=== PATIENT | male | born 1940 | race Caucasian/White ===

== ENCOUNTER 2019-08-26 18:58 | Outpatient (CLI) | payer OTHER | END 2019-08-26 18:59 | disposition home or self-care (01) | LOC: COV 18:58 | PROVIDERS: ATTEND Family Medicine | DX: R50.9 Fever, unspecified (principal); M79.10 Myalgia, unspecified site | CPT/HCPCS: 81599 ==

== ENCOUNTER 2020-01-03 14:04 | Outpatient (CLI) | payer OTHER | END 2020-01-03 14:05 | disposition home or self-care (01) | LOC: COV 14:04 | PROVIDERS: ATTEND Family Medicine | DX: R05 Cough (principal); R53.83 Other fatigue; Z20.828 Contact with and (suspected) exposure to other viral communicable diseases ==

== ENCOUNTER 2020-07-18 09:26 | Outpatient (CLI) | payer OTHER | END 2020-07-18 09:27 | disposition home or self-care (01) | LOC: RT 09:26 | PROVIDERS: ATTEND Family Medicine | DX: R06.09 Other forms of dyspnea (principal) | CPT/HCPCS: 94010 ==

== ENCOUNTER 2022-05-12 11:50 | Outpatient (CLI) | payer OTHER ==
[2022-05-12 12:23] LABS: CREATININE 1.4 mg/dL (0.6-1.2)
== END 2022-05-12 11:51 | disposition home or self-care (01) ==
LOC: LAB 11:50
PROVIDERS: ATTEND Nurse Practitioner Family
DX: R10.12 Left upper quadrant pain (principal)
CPT/HCPCS: 36415; 82565

== ENCOUNTER 2022-10-22 16:45 | Emergency (ER) | payer OTHER ==
[2022-10-22 17:07] LABS: BASOPHILS # (AUTO) 0.1 10^3/uL (0.0-0.1); BASOPHILS % (AUTO) 0.4 %; EOSINOPHILS % (AUTO) 0.1 %; HCT - HEMATOCRIT 40.2 % (42.0-52.0); HGB - HEMOGLOBIN 13.2 g/dL (14.0-18.0); LYMPHOCYTES # (AUTO) 1.4 10^3/uL (1.5-3.5); LYMPHOCYTES % (AUTO) 8.1 %; MEAN CORPUSCULAR HEMOGLOBIN 29.7 pg (27.0-31.0); MEAN CORPUSCULAR HGB CONC 32.8 g/dL (32.0-36.0); MEAN CORPUSCULAR VOLUME 90.3 fL (80.0-94.0); MEAN PLATELET VOLUME 9.3 fL (7.4-11.4); MONOCYTES # (AUTO) 1.4 10^3/uL (0.0-1.0); MONOCYTES % (AUTO) 8.3 %; NEUTROPHILS # (AUTO) 13.6 10^3/uL (1.5-6.6); NEUTROPHILS % (AUTO) 82.3 %; PLT - PLATELET COUNT 239 10^3/uL (130-450); RED BLOOD COUNT 4.45 10^6/uL (4.70-6.10); RED CELL DISTRIBUTION WIDTH 15.1 % (12.0-15.0); WHITE BLOOD COUNT 16.6 x10^3/uL (4.8-10.8)
[2022-10-22] MEDS ORDERED: METOCLOPRAMIDE 10 MG/2 ML VIAL IVP STA ×2 (17:08→22:14)
[2022-10-22 17:20] LABS: ALBUMIN 3.7 g/dL (3.2-5.5); BILIRUBIN,TOTAL 0.7 mg/dL (0.2-1.0); CALCIUM 10.7 mg/dL (8.5-10.3); CREATININE 1.4 mg/dL (0.6-1.2); POTASSIUM 3.2 mmol/L (3.5-5.0); TOTAL PROTEIN 7.3 g/dL (6.7-8.2)
--- NOTE | 2022-10-22 17:32 | ED Physician Documentation ---
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 He states that over the past few days he has had increasing nausea and feels like there is "acid buildup" in his stomach. He has Compazine and Zofran at home but does not feel like that is helping. Has had some constipation as well. He states he feels better if he makes himself vomit. He states his recent CT scan showed very little tumor burden left in the stomach. [facility] at the [facility] in [place]. Review of Systems Constitutional: denies: Fever, Chills Nose: denies: Rhinorrhea / runny nose, Congestion Cardiac: denies: Chest pain / pressure, Palpitations Respiratory: denies: Dyspnea, Cough GI: reports: Nausea. denies: Vomiting, Diarrhea : denies: Dysuria Skin: denies: Rash Musculoskeletal: denies: Neck pain, Back pain Neurologic: denies: Focal weakness, Numbness, Headache PD PAST MEDICAL HISTORY - Past Medical History Past Medical History: Yes GI: GERD Other Past Medical History: Gastric lymphoma - Present Medications Home Medications: Ambulatory Orders Medication Instructions Recorded Confirmed Metoclopramide [Reglan] 10 mg PO Q6H PRN #20 tablet 10/22/22 Omeprazole Magnesium 20 mg PO BID 10/22/22 10/22/22 Prochlorperazine Maleate 10 mg ORAL Q6HR PRN 10/22/22 10/22/22 ondansetron HCL [Ondansetron HCl] 8 mg ORAL Q8HR PRN 10/22/22 10/22/22 - Allergies Allergies/Adverse Reactions: Allergies Allergy/AdvReac Type Severity Reaction Status Date / Time No Known Drug Allergies Allergy Verified 10/22/22 16:50 - Living Situation Living Situation: reports: With family Living Arrangement: reports: At home - Social History Does the pt have substance abuse?: No - Family History Family history: reports: Non contributory PD ED PE NORMAL - Vitals Vital signs reviewed: Yes - General General: Alert and oriented X 3, No acute distress - HEENT HEENT: PERRL, Moist mucous membranes - Neck Neck: Supple, no meningeal sign - Cardiac Cardiac: RRR, Strong equal pulses - Respiratory Respiratory: No respiratory distress, Clear bilaterally - Abdomen Abdomen: Soft, Non distended, Other (Mild tender to palpation epigastric and left upper quadrant. No peritoneal signs) - Back Back: No CVA TTP, No spinal TTP - Derm Derm: Warm and dry - Extremities Extremities: No edema, No calf tenderness / cord - Neuro Neuro: Alert and oriented X 3 - Psych Psych: Normal mood, Normal affect Results - Vitals Vitals: Vital Signs - 24 hr 10/22/22 10/22/22 10/22/22 16:51 19:18 21:00 Temperature 36.5 C Heart Rate 112 H 75 74 Respiratory 18 18 16 Rate Blood Pressure 147/90 H 121/73 120/72 O2 Saturation 91 L 98 98 10/22/22 22:51 Temperature 36.5 C Heart Rate 72 Respiratory 16 Rate Blood Pressure 122/76 O2 Saturation 100 Oxygen O2 Source Room air - Labs Labs: Laboratory Tests 10/22/22 10/22/22 10/22/22 17:03 17:03 17:10 WBC 16.6 H RBC 4.45 L Hgb 13.2 L Hct 40.2 L MCV 90.3 MCH 29.7 MCHC 32.8 RDW 15.1 H Plt Count 239 MPV 9.3 Neut # (Auto) 13.6 H Lymph # (Auto) 1.4 L [place] # (Auto) 1.4 H Eos # (Auto) 0.0 Baso # (Auto) 0.1 Absolute Nucleated RBC 0.00 Nucleated RBC % 0.0 Sodium 132 L Potassium 3.2 L Chloride 90 L Carbon Dioxide 32 Anion Gap 10.0 BUN 15 Creatinine 1.4 H Estimated GFR (MDRD) 49 L Glucose 144 H Calcium 10.7 H Total Bilirubin 0.7 AST 18 ALT 15 Alkaline Phosphatase 70 Total Protein 7.3 Albumin 3.7 Globulin 3.6 Albumin/Globulin Ratio 1.0 Lipase 33 Urine Color YELLOW Urine Clarity CLEAR Urine pH 7.5 Ur Specific [place] 1.010 Urine Protein NEGATIVE Urine Glucose (UA) NEGATIVE Urine Ketones NEGATIVE Urine Occult Blood NEGATIVE Urine Nitrite NEGATIVE Urine Bilirubin NEGATIVE Urine Urobilinogen 0.2 (NORMAL) Ur Leukocyte Esterase NEGATIVE Ur Microscopic Review NOT INDICATED Urine Culture Comments NOT INDICATED PD Medical Decision Making - ED course Complexity details: reviewed results, re-evaluated patient, considered differential, d/w patient ED course: 82-year-old male with a history of gastric lymphoma presents with nausea and vomiting. He had quite a bit of relief with Reglan. However when he did try to drink again, he had a large amount of emesis. A CT scan was then performed. This does not show any evidence of obstruction. He was given IV fluids. He was given a second dose of IV Reglan several hours later and feels much better. He does not want to stay in the hospital. He will try being on a liquid diet for the next 24 hours and see how he progresses. If he fails to improve as expected, he will return for likely admission at that point. He is followed at the [facility]. Abdomen is soft, nontender nondistended. No significant lab abnormalities. Patient and family counseled regarding signs and symptoms for which I believe and urgent re-evaluation would be necessary. Patient with good understanding of and agreement to plan and is comfortable going home at this time This document was made in part using voice recognition software. While efforts are made to proofread this document, sound alike and grammatical errors may occur. Departure - Departure Disposition: 01 Home, Self Care Clinical Impression: Vomiting Qualifiers: Vomiting type: unspecified Nausea presence: with nausea Qualified Code(s): R11.2 - Nausea with vomiting, unspecified Condition: Good Instructions: ED Nausea Vomiting Follow-Up: KERRIE KICNAID ARNP [Primary Care Provider] - Within 3 Days Prescriptions: Metoclopramide [Reglan] 10 mg PO Q6H PRN #20 tablet PRN Reason: Nausea / Vomiting Comments: We will trial you on Reglan at home for your nausea and vomiting. Do not take this with your Compazine/prochlorperazine. Make sure to eat small frequent meals, I would stick to a liquid diet for the next 24 hours at least. Please return if you are continuing to have vomiting, cannot keep liquids down or have any new or worrisome symptoms. Your prescriptions were sent to [facility] in [place]. PROCEDURE: ABDOMEN/PELVIS W INDICATIONS: gastric lymphoma, vomiting CONTRAST: Nonionic contrast, no oral contrast, 100 ML OMNI 300 TECHNIQUE: After the administration of intravenous but without oral contrast, 5 mm thick sections acquired from the diaphragms to the symphysis. 5 mm thick coronal and sagittal reformats were acquired. For radiation dose reduction, the following was used: automated exposure control, adjustment of mA and/or kV according to patient size. COMPARISON: Similar study 05/12/2022 FINDINGS: Image quality: Excellent. Lung bases and heart: Mild chronic appearing lung scarring, suspect COPD. Liver: No solid mass. Gallbladder and biliary tree: The gallbladder appears moderately contracted Spleen: No splenomegaly. Pancreas: No pancreatic ductal dilation. Adrenals: No adrenal nodule. Kidneys and ureters: No hydronephrosis. No renal cystic lesion which requires follow up. No solid mass. Bowel and peritoneum: No bowel distension. No pathologic free fluid. Abnormal mural thickening of the gastric wall through the distal body and gastric antrum is no longer seen. The antrum appears contracted. Lymph nodes: No central or retroperitoneal adenopathy. Vessels: No infrarenal aortic aneurysm. PELVIS Reproductive organs: Unremarkable. Bladder: No abnormal wall thickening, accounting for underdistension. Pelvic lymph nodes: No pelvic adenopathy by size criteria. Bones: No aggressive osseous abnormality. Other: No significant ventral or inguinal hernia. IMPRESSION: Resolution of prior abnormal mural thickening at the distal gastric body and the antrum seen 05/12/2022. This has resolved. Currently while there is fluid filling the gastric lumen the gastric antrum appears relatively contracted but identifiable mural thickening is not present. Lung bases emphysematous change appears present, probable COPD. Throughout the visualized lower chest, abdomen and pelvis no adenopathy is found. Discharge Date/Time: 10/22/22 22:51
[2022-10-22 18:11] LABS: BILIRUBIN,URINE NEGATIVE (NEGATIVE); GLUCOSE, URINE (UA) NEGATIVE (NEGATIVE); KETONES,URINE (UA) NEGATIVE (NEGATIVE); LEUKOCYTE ESTERASE, URINE NEGATIVE (NEGATIVE); NITRITE,URINE NEGATIVE (NEGATIVE); OCCULT BLOOD,URINE NEGATIVE (NEGATIVE); PH,URINE 7.5 PH (5.0-7.5); PROTEIN,URINE NEGATIVE (NEGATIVE); UROBILINOGEN,URINE 0.2 (NORMAL) E.U./dL (NORMAL)
[2022-10-22 18:12] LABS: CLARITY,URINE CLEAR (CLEAR)
[2022-10-22] MEDS ORDERED: PROMETHAZINE INJ 25 MG in SODIUM CHLORIDE 0.9% 50 ML IV STA (18:48)
[2022-10-22] MEDS ORDERED: PROMETHAZINE 25 MG/1 ML VIAL ONE (19:11)
[2022-10-22] MEDS ORDERED: iohexoL-300 100 ML VIAL ONE (20:05)
[2022-10-22] MEDS ORDERED: iohexoL-300 100 ML VIAL IVP ONE (20:40)
--- NOTE | 2022-10-22 21:51 | CT Report ---
PROCEDURE: ABDOMEN/PELVIS W INDICATIONS: gastric lymphoma, vomiting CONTRAST: Nonionic contrast, no oral contrast, 100 ML OMNI 300 TECHNIQUE: After the administration of intravenous but without oral contrast, 5 mm thick sections acquired from the diaphragms to the symphysis. 5 mm thick coronal and sagittal reformats were acquired. For radia tion dose reduction, the following was used: automated exposure control, adjustment of mA and/or kV according to patient size. COMPARISON: Similar study 05/12/2022 FINDINGS: Image quality: Excellent. Lung bases and heart: Mild chronic appearing lung scarring, suspect COPD. Liver: No solid mass. Gallbladder and biliary tree: The gallbladder appears moderately contracted Spleen: No splenomegaly. Pancreas: No pancreatic ductal dilation. Adrenals: No adrenal nodule. Kidneys and ureters: No hydronephrosis. No renal cystic lesion which requires follow up. No solid mas s. Bowel and peritoneum: No bowel distension. No pathologic free fluid. Abnormal mural thickening of the gastric wall through the distal body and gastric antrum is no longer seen. The antrum appears contra cted. Lymph nodes: No central or retroperitoneal adenopathy. Vessels: No infrarenal aortic aneurysm. PELVIS Reproductive organs: Unremarkable. Bladder: No abnormal wall thickening, accounting for underdistension. Pelvic lymph nodes: No pelvic adenopathy by size criteria. Bones: No aggressive osseous abnormality. Other: No significant ventral or inguinal hernia. IMPRESSION: Resolution of prior abnormal mural thickening at the distal gastric body and the antrum seen 3. This has resolved. Currently while there is fluid filling the gastric lumen the gastric antrum murphy ears relatively contracted but identifiable mural thickening is not present. Lung bases emphysematous change appears present, probable COPD. Throughout the visualized lower chest , abdomen and pelvis no adenopathy is found. Reviewed by: Yonis Aguilar MD on 10/22/2022 9:49 PM PDT Approved by: Yonis Aguilar MD on 10/22/2022 9:49 PM PDT Station ID: [id number]
[2022-10-22 22:58] VITALS: BP 122/76
== END 2022-10-22 22:51 | disposition home or self-care (01) ==
LOC: ED 16:45
DX: R11.2 Nausea with vomiting, unspecified (principal)
CPT/HCPCS: 36415; 74177; 80053; 81003; 83690; 85025; 96365; 96375; 96376; 99284; J2765; J7040; Q9967; 81001; 87086

== ENCOUNTER 2022-10-23 08:56 | Emergency (ER) | payer OTHER ==
[2022-10-23 10:03] LABS: BASOPHILS # (AUTO) 0.1 10^3/uL (0.0-0.1); BASOPHILS % (AUTO) 0.3 %; EOSINOPHILS % (AUTO) 0.1 %; HCT - HEMATOCRIT 37.1 % (42.0-52.0); HGB - HEMOGLOBIN 12.1 g/dL (14.0-18.0); LYMPHOCYTES # (AUTO) 1.2 10^3/uL (1.5-3.5); MEAN CORPUSCULAR HEMOGLOBIN 29.7 pg (27.0-31.0); MEAN CORPUSCULAR HGB CONC 32.6 g/dL (32.0-36.0); MEAN CORPUSCULAR VOLUME 90.9 fL (80.0-94.0); MEAN PLATELET VOLUME 9.6 fL (7.4-11.4); MONOCYTES # (AUTO) 1.6 10^3/uL (0.0-1.0); MONOCYTES % (AUTO) 10.7 %; NEUTROPHILS # (AUTO) 12.1 10^3/uL (1.5-6.6); NEUTROPHILS % (AUTO) 80.2 %; PLT - PLATELET COUNT 216 10^3/uL (130-450); RED BLOOD COUNT 4.08 10^6/uL (4.70-6.10); RED CELL DISTRIBUTION WIDTH 15.3 % (12.0-15.0); WHITE BLOOD COUNT 15.1 x10^3/uL (4.8-10.8)
[2022-10-23] MEDS ORDERED: SODIUM CHLORIDE 0.9% 1,000 ML IV STA (10:07)
[2022-10-23 10:11] LABS: RBC MORPHOLOGY (MULTIPLE) 3+ ANISOCYTOSIS (NORMAL); SLIDE REVIEW? Indicated
[2022-10-23 10:17] LABS: ALBUMIN 3.1 g/dL (3.2-5.5); BILIRUBIN,TOTAL 0.8 mg/dL (0.2-1.0); CALCIUM 10.4 mg/dL (8.5-10.3); CREATININE 1.4 mg/dL (0.6-1.2); TOTAL PROTEIN 6.2 g/dL (6.7-8.2)
[2022-10-23] MEDS: diltiaZEM CD 120 MG CAPSULE PO STA ×2 (10:27→11:02)
[2022-10-23 11:11] LABS: BILIRUBIN,URINE NEGATIVE (NEGATIVE); GLUCOSE, URINE (UA) NEGATIVE (NEGATIVE); KETONES,URINE (UA) NEGATIVE (NEGATIVE); LEUKOCYTE ESTERASE, URINE NEGATIVE (NEGATIVE); NITRITE,URINE NEGATIVE (NEGATIVE); OCCULT BLOOD,URINE NEGATIVE (NEGATIVE); PROTEIN,URINE NEGATIVE (NEGATIVE); UROBILINOGEN,URINE 0.2 (NORMAL) E.U./dL (NORMAL)
[2022-10-23 11:18] LABS: CLARITY,URINE CLEAR (CLEAR)
[2022-10-23] MEDS ORDERED: diltiaZEM CD 120 MG CAPSULE PO STA (11:22)
[2022-10-23] MEDS ORDERED: POTASSIUM CHLORIDE 20 MEQ TABLET PO STA (11:42)
[2022-10-23] MEDS ORDERED: BACITRACIN ZINC OINT 1 PACKET TOP STA (15:35)
--- NOTE | 2022-10-23 15:40 | ED Physician Documentation ---
History of Present Illness - Stated complaint Stated Complaint: VOMITING/FALL - Chief complaint Chief Complaint: Abd Pain - History obtained from History obtained from: Patient, Family - Additonal information Additional information: The pt returns to the ED for CC of generalized weakness today. The pt has been struggling with this since being placed on chemotherapy for metastatic colorectal CA, but sx seem to be worse lately. He has just started a new agent within the past week. He did become nauseated and vomited once last night, but has not vomited since. He has had some falls and was just seen yesterday for the vomiting and weakness. The pt wished to go home, but due to weakness, has had to return today. Pt states he gets waves of weakness, but denies CP, SOB, or palpitations. No formal dx of a. fib that the pt knows of, though he states it has been suspected previously. The pt does not use any assistive device for walking. He states he has a "nice walking stick", but does not use it in the house. He states he is feeling fine in bed, but it is when he gets up to walk that he feels he cannot hold himself up. No fevers. No other complaints at this time. PD PAST MEDICAL HISTORY - Past Medical History GI: GERD - Present Medications Home Medications: Ambulatory Orders Medication Instructions Recorded Confirmed Metoclopramide [Reglan] 10 mg PO Q6H PRN #20 tablet 10/22/22 10/23/22 Omeprazole Magnesium 20 mg PO BID 10/22/22 10/23/22 Prochlorperazine Maleate 10 mg ORAL Q6HR PRN 10/22/22 10/23/22 ondansetron HCL [Ondansetron HCl] 8 mg ORAL Q8HR PRN 10/22/22 10/23/22 Potassium Chloride [K-Dur] 20 meq PO BIDWM #20 tablet 10/23/22 - Allergies Allergies/Adverse Reactions: Allergies Allergy/AdvReac Type Severity Reaction Status Date / Time No Known Drug Allergies Allergy Verified 10/26/22 04:56 - Social History Does the pt have substance abuse?: No PD ED PE NORMAL - Vitals Vital signs reviewed: Yes - General General: Alert and oriented X 3, No acute distress - HEENT HEENT: Atraumatic, PERRL, EOMI, Moist mucous membranes - Neck Neck: Supple, no meningeal sign - Cardiac Cardiac: No murmur, Strong equal pulses, Other (tachycardic, irregularly irregular rhythm) - Respiratory Respiratory: No respiratory distress, Clear bilaterally - Abdomen Abdomen: Soft, Non tender, Non distended - Derm Derm: Normal color, Warm and dry, No rash - Extremities Extremities: No deformity, No edema - Neuro Neuro: Alert and oriented X 3, assistant nurse manager 2-12 intact, No motor deficit, No sensory deficit, Normal speech, Other (no ataxia. ) - Psych Psych: Normal mood, Normal affect Results - Vitals Vitals: Oxygen O2 Source Room air - EKG (time done) 0949 EKG releavant findings:: EKG personally interpreted by author of this note. Relevant findings are: Rate: Rate (enter#) (163) Rhythm: Atrial fibrillation [place]: Normal QRS: Normal Ischemia: Other (repolarization abnormalities, likely secondary to extreme tachycardia) Compare to prior EKG: Old EKG unavailable Computer interpretation: Agree with computer - Labs Labs: Laboratory Tests 10/23/22 10/23/22 10/23/22 09:56 09:56 11:00 WBC 15.1 H RBC 4.08 L Hgb 12.1 L Hct 37.1 L MCV 90.9 MCH 29.7 MCHC 32.6 RDW 15.3 H Plt Count 216 MPV 9.6 Neut # (Auto) 12.1 H Lymph # (Auto) 1.2 L [place] # (Auto) 1.6 H Eos # (Auto) 0.0 Baso # (Auto) 0.1 Absolute Nucleated RBC 0.00 Nucleated RBC % 0.0 Manual Slide Review Indicated RBC Morph Micro Appear 3+ ANISOCYTOSIS Sodium 133 L Potassium 3.0 L Chloride 92 L Carbon Dioxide 31 Anion Gap 10.0 BUN 20 Creatinine 1.4 H Estimated GFR (MDRD) 49 L Glucose 138 H Calcium 10.4 H Total Bilirubin 0.8 AST 16 ALT 15 Alkaline Phosphatase 56 Total Protein 6.2 L Albumin 3.1 L Globulin 3.1 Albumin/Globulin Ratio 1.0 Lipase 30 Urine Color YELLOW Urine Clarity CLEAR Urine pH 6.0 Ur Specific [place] 1.010 Urine Protein NEGATIVE Urine Glucose (UA) NEGATIVE Urine Ketones NEGATIVE Urine Occult Blood NEGATIVE Urine Nitrite NEGATIVE Urine Bilirubin NEGATIVE Urine Urobilinogen 0.2 (NORMAL) Ur Leukocyte Esterase NEGATIVE Ur Microscopic Review NOT INDICATED Urine Culture Comments NOT INDICATED PD Medical Decision Making - ED course Complexity details: reviewed old records, reviewed results, re-evaluated patient, considered differential, d/w patient, d/w family ED course: The pt was well-appearing in the ED, but was in a. fib with RVR. He was mildly hypotensive, and as such, I was reluctant to give him calcium channel or beta blockers. IV was placed and labs drawn, and IV fluids immediately started. Near the end of my evaluation, the pt's HR suddenly began to trend downward in to the 120's. I decided to let the fluids take effect and see if pt's BP improved enough to give diltiazem, since pt was asymptomatic in the bed, and did not relish the idea of cardioversion. I ordered an oral dose of Cardizem, but in the meantime, pt converted to NSR on his own after a few more brief episodes of HR in the 160's-170's. I did give the Cardizem anyway, to prevent the pt's return to a.fib, as his BP had now normalized. His CBC showed a WBC count of 15.1 and a hgb of 12. His metabolic panel showed some renal insufficiency and hypokalemia at 3.0. The pt was given oral potassium replacement. He tolerated both oral meds in the ED. I did speak at length with the pt and his , as the pt was still somewhat unsteady on his feet, but at least able to stand now. I am not sure what is causing the pt's weakness now, but I suspect it is the result of the toll that the cancer and its treatment are taking. I discussed with them that it would be advisable for the pt to have an assistive device for walking, preferably a walker. The and pt were immediately defensive and very resistant to this idea, stating that "it is a milestone" to use a walker, a nd the stating that "I don't have to be realistic". I did discuss with them that the risks of serious injury from falls, particularly in the pt's condition, are not small, and include intracranial hemorrhage, hip fracture, spinal injury, and others. The pt did not meet admission criteria for anything at this time, and I left the pt and to consider things for a while. The pt after some time stated that he wished to go home, and both he and his were now agreeable to having a walker at home. I have d/w them that it is very important to have a conversation with his PCP as soon as possible about getting assistance at home, should they need it. Unfortunately, we have no social work administrator this week to assist with such matters. We have discussed the usual indications for return. Departure - Departure Disposition: 01 Home, Self Care Clinical Impression: Generalized weakness, Hypokalemia Condition: Stable Instructions: ED Potassium Deficiency, ED Weakness UKO, ED Fall Dizziness Weakn Balance Prescriptions: Potassium Chloride [K-Dur] 20 meq PO BIDWM #20 tablet Comments: Your labs showed a decreased potassium today, for which we have started you on potassium supplements. This may help some of your generalized weakness. You do not have any focal weakness in any one side or one arm or leg to indicate a specific problem in your brain. Furthermore, you are no longer vomiting which is good. You were found to have an episode of atrial fibrillation with your heart beating very fast when you first came in, and you were given a medication to help with this. If you continue to have these episodes repeatedly, you will need to talk to your doctor about being on medicine regularly to keep your heart under control. It is very important that you follow-up for your PET scan as scheduled and also, with your oncologist. Please use the walker at home to help with your balance and stability. When you see your oncologist, please discuss further options for assistance at home if you feel that the walker is not providing enough support. [facility] the [facility] [place]. Discharge Date/Time: 10/23/22 15:54
[2022-10-23 15:46] VITALS: BP 107/70
== END 2022-10-23 15:54 | disposition home or self-care (01) ==
LOC: ED 08:56
DX: R53.1 Weakness (principal); E87.6 Hypokalemia; Z79.899 Other long term (current) drug therapy
CPT/HCPCS: 36415; 80053; 81003; 83690; 85025; 93005; 96360; 96361; 99284; 99285; A9270; 81001; 87086

== ENCOUNTER 2022-10-26 04:38 | Emergency (ER) | payer OTHER ==
--- NOTE | 2022-10-26 04:51 | ED Physician Documentation ---
PD HPI ABD PAIN - Stated complaint Stated Complaint: ABD PX - Chief complaint Chief Complaint: Abd Pain - History obtained from History obtained from: Patient - Additional information Additional information: HPI from patient. Patient complains of abdominal pain, across the upper abdomen but predominantly left upper quadrant. This pain has been episodic for the past 3 to 4 days. He has had nausea and vomiting in this same timeframe. His abdominal pain is worse with any PO intake including liquids. He describes the pain as burning sensation. Patient was treated released from this emergency department on October 22 and again the following day for similar symptoms. Testing included blood tests, CT of the abdomen pelvis. There were no remarkable nor diagnostic findings on these tests. Of note, EKG from October 23 indicated rapid atrial fibrillation, which is apparently a new diagnosis for the patient. 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 For this diagnosis, he has underwent, and completed, chemotherapy. The patient has a PET scan scheduled for tomorrow at the OR to determine if he would need a second round of chemotherapy. Patient has had coffee-ground appearance to his emesis as well as black, tarry stool. Patient denies heavy/regular alcohol use (patient says he does not drink alcohol), and denies recent and/or regular NSAID use. Review of Systems Constitutional: reports: Reviewed and negative Cardiac: reports: Reviewed and negative Respiratory: reports: Reviewed and negative GI: reports: Abdominal Pain, Nausea, Vomiting, Bloody / black stool PD PAST MEDICAL HISTORY - Past Medical History Past Medical History: Yes GI: GERD Other Past Medical History: gastric lymphoma - Present Medications Home Medications: Ambulatory Orders Medication Instructions Recorded Confirmed Metoclopramide [Reglan] 10 mg PO Q6H PRN #20 tablet 10/22/22 10/23/22 Omeprazole Magnesium 20 mg PO BID 10/22/22 10/23/22 Prochlorperazine Maleate 10 mg ORAL Q6HR PRN 10/22/22 10/23/22 ondansetron HCL [Ondansetron HCl] 8 mg ORAL Q8HR PRN 10/22/22 10/23/22 Potassium Chloride [K-Dur] 20 meq PO BIDWM #20 tablet 10/23/22 - Allergies Allergies/Adverse Reactions: Allergies Allergy/AdvReac Type Severity Reaction Status Date / Time No Known Drug Allergies Allergy Verified 10/26/22 04:56 - Social History Does the pt have substance abuse?: No PD ED PE NORMAL - Vitals Vital signs reviewed: Yes - General General: Alert and oriented X 3, No acute distress, Well developed/nourished - HEENT HEENT: PERRL - Cardiac Cardiac: No murmur - Respiratory Respiratory: No respiratory distress, Clear bilaterally - Abdomen Abdomen: Soft, Non distended - Derm Derm: Normal color, Warm and dry - Extremities Extremities: No edema PD ED PE EXPANDED - Cardiac Cardiac: Irregularly irregular. No: Murmur Present - Abdomen Abdomen: Tender to palpation (across upper abdomen but most pronounced in LUQ. no rebound or guarding) Results - Vitals Vitals: Vital Signs - 24 hr 10/26/22 10/26/22 10/26/22 04:43 06:25 06:40 Temperature 36.6 C Heart Rate 101 H 171 H 85 Heart Rate [ Monitoring electrodes] Respiratory 18 16 16 Rate Blood Pressure 126/78 105/81 H 123/71 Blood Pressure [Right] O2 Saturation 98 99 100 10/26/22 10/26/22 10/26/22 08:15 08:49 09:20 Temperature 36.9 C Heart Rate 138 H 105 H 75 Heart Rate [ Monitoring electrodes] Respiratory 18 20 Rate Blood Pressure 122/77 103/52 L 98/68 Blood Pressure [Right] O2 Saturation 98 98 10/26/22 10/26/22 10/26/22 11:20 11:31 11:50 Temperature 36.4 C L 36.1 C L Heart Rate 73 Heart Rate [ 80 85 Monitoring electrodes] Respiratory 19 17 15 Rate Blood Pressure 106/66 Blood Pressure 113/68 105/65 [Right] O2 Saturation 98 99 98 10/26/22 10/26/22 10/26/22 12:01 12:06 13:00 Temperature 36.6 C 36.7 C 36.7 C Heart Rate Heart Rate [ 70 71 65 Monitoring electrodes] Respiratory 19 21 22 Rate Blood Pressure Blood Pressure 113/68 110/68 112/67 [Right] O2 Saturation 97 97 99 10/26/22 10/26/22 10/26/22 14:21 15:29 18:21 Temperature 36.7 C Heart Rate 66 67 Heart Rate [ 67 Monitoring electrodes] Respiratory 15 18 15 Rate Blood Pressure 103/68 114/76 Blood Pressure 105/65 [Right] O2 Saturation 98 98 98 Oxygen O2 Source Room air - EKG (time done) No standard instances EKG releavant findings:: EKG personally interpreted by author of this note. Relevant findings are: Rate: Rate (enter#) (155) Rhythm: Atrial fibrillation [place]: Normal Ischemia: Normal ST segments, Q waves (III, aVF) Compare to prior EKG: Unchanged from prior EKG Computer interpretation: Disagree with computer (no findings to support AMI) - Labs Labs: Microbiology 10/26/22 06:20 Occult Blood - Final Stool Laboratory Tests 10/26/22 10/26/22 10/26/22 05:34 05:34 05:34 WBC 12.2 H RBC 2.82 L Hgb 8.5 L Hct 26.1 L MCV 92.6 MCH 30.1 MCHC 32.6 RDW 15.1 H Plt Count 214 MPV 9.9 Neut # (Auto) 10.1 H Lymph # (Auto) 1.0 L [place] # (Auto) 0.8 Eos # (Auto) 0.0 Baso # (Auto) 0.1 Absolute Nucleated RBC 0.00 Nucleated RBC % 0.0 Sodium 133 L Potassium 3.6 Chloride 101 Carbon Dioxide 25 Anion Gap 7.0 BUN 16 Creatinine 1.1 Estimated GFR (MDRD) 64 L Glucose 131 H Calcium 8.5 Total Bilirubin 0.5 AST 17 ALT 15 Alkaline Phosphatase 44 Troponin I High Sens 15.8 Total Protein 5.6 L Albumin 2.9 L Globulin 2.7 Albumin/Globulin Ratio 1.1 Lipase 37 Urine Color Urine Clarity Urine pH Ur Specific [place] Urine Protein Urine Glucose (UA) Urine Ketones Urine Occult Blood Urine Nitrite Urine Bilirubin Urine Urobilinogen Ur Leukocyte Esterase Ur Microscopic Review Urine Culture Comments Blood Type Blood Type Recheck Antibody Screen Crossmatch IS Only 10/26/22 10/26/22 10/26/22 05:37 05:53 06:46 WBC RBC Hgb Hct MCV MCH MCHC RDW Plt Count MPV Neut # (Auto) Lymph # (Auto) [place]lin # (Auto) Eos # (Auto) Baso # (Auto) Absolute Nucleated RBC Nucleated RBC % Sodium Potassium Chloride Carbon Dioxide Anion Gap BUN Creatinine Estimated GFR (MDRD) Glucose Calcium Total Bilirubin AST ALT Alkaline Phosphatase Troponin I High Sens Total Protein Albumin Globulin Albumin/Globulin Ratio Lipase Urine Color YELLOW Urine Clarity CLEAR Urine pH 6.5 Ur Specific [place] 1.015 Urine Protein NEGATIVE Urine Glucose (UA) NEGATIVE Urine Ketones NEGATIVE Urine Occult Blood NEGATIVE Urine Nitrite NEGATIVE Urine Bilirubin NEGATIVE Urine Urobilinogen 1 (NORMAL) Ur Leukocyte Esterase NEGATIVE Ur Microscopic Review NOT INDICATED Urine Culture Comments NOT INDICATED Blood Type O POSITIVE Blood Type Recheck O POSITIVE Antibody Screen NEGATIVE Crossmatch IS Only See Detail 10/26/22 10/26/22 10/26/22 09:25 15:10 19:00 WBC RBC Hgb 7.6 L 8.8 L 8.5 L Hct 23.6 L 26.9 L 26.4 L MCV MCH MCHC RDW Plt Count MPV Neut # (Auto) Lymph # (Auto) [place] # (Auto) Eos # (Auto) Baso # (Auto) Absolute Nucleated RBC Nucleated RBC % Sodium Potassium Chloride Carbon Dioxide Anion Gap BUN Creatinine Estimated GFR (MDRD) Glucose Calcium Total Bilirubin AST ALT Alkaline Phosphatase Troponin I High Sens Total Protein Albumin Globulin Albumin/Globulin Ratio Lipase Urine Color Urine Clarity Urine pH Ur Specific [place] Urine Protein Urine Glucose (UA) Urine Ketones Urine Occult Blood Urine Nitrite Urine Bilirubin Urine Urobilinogen Ur Leukocyte Esterase Ur Microscopic Review Urine Culture Comments Blood Type Blood Type Recheck Antibody Screen Crossmatch IS Only PD Medical Decision Making - ED course Complexity details: reviewed old records, reviewed results, re-evaluated patient, considered differential, d/w patient, d/w family ED course: Significant findings on tonight's testing include hemoglobin of 8.5 (down from 12.1 on 10/23, 13.2 on 10/22), guaiac (+) stool, and JASON. He has no history of GI bleeding, no history of needing blood transfusion. Is given 10 mg IV diltiazem with improvement in heart rate to 110s-120s but remains in atrial fibrillation. He is given 40 mg IV Protonix. Patient requests pain medication for abdominal pain. I offered morphine through his PICC line, the patient prefers nonnarcotic option. He is given IV Ofirmev. The [facility] is contacted for consideration of transfer to their facility, but they do not have any beds available. Care of patient turned over to oncoming ED physician at end of my shift (Dr. Holden) pending transfer to appropriate facility Departure - Departure Disposition: 02 Transfer Acute Care Hosp Clinical Impression: Atrial fibrillation with RVR, Upper GI bleed
[2022-10-26] MEDS ORDERED: METOCLOPRAMIDE 10 MG/2 ML VIAL IVP STA (05:25)
[2022-10-26] MEDS ORDERED: SODIUM CHLORIDE 0.9% 1,000 ML IV STA (05:25)
[2022-10-26 05:40] LABS: BASOPHILS # (AUTO) 0.1 10^3/uL (0.0-0.1); BASOPHILS % (AUTO) 0.4 %; EOSINOPHILS % (AUTO) 0.2 %; HCT - HEMATOCRIT 26.1 % (42.0-52.0); HGB - HEMOGLOBIN 8.5 g/dL (14.0-18.0); LYMPHOCYTES % (AUTO) 8.3 %; MEAN CORPUSCULAR HEMOGLOBIN 30.1 pg (27.0-31.0); MEAN CORPUSCULAR HGB CONC 32.6 g/dL (32.0-36.0); MEAN CORPUSCULAR VOLUME 92.6 fL (80.0-94.0); MEAN PLATELET VOLUME 9.9 fL (7.4-11.4); MONOCYTES # (AUTO) 0.8 10^3/uL (0.0-1.0); MONOCYTES % (AUTO) 6.8 %; NEUTROPHILS # (AUTO) 10.1 10^3/uL (1.5-6.6); NEUTROPHILS % (AUTO) 82.9 %; PLT - PLATELET COUNT 214 10^3/uL (130-450); RED BLOOD COUNT 2.82 10^6/uL (4.70-6.10); RED CELL DISTRIBUTION WIDTH 15.1 % (12.0-15.0); WHITE BLOOD COUNT 12.2 x10^3/uL (4.8-10.8)
[2022-10-26 05:45] LABS: BILIRUBIN,URINE NEGATIVE (NEGATIVE); GLUCOSE, URINE (UA) NEGATIVE (NEGATIVE); KETONES,URINE (UA) NEGATIVE (NEGATIVE); LEUKOCYTE ESTERASE, URINE NEGATIVE (NEGATIVE); NITRITE,URINE NEGATIVE (NEGATIVE); OCCULT BLOOD,URINE NEGATIVE (NEGATIVE); PH,URINE 6.5 PH (5.0-7.5); PROTEIN,URINE NEGATIVE (NEGATIVE); UROBILINOGEN,URINE 1 (NORMAL) E.U./dL (NORMAL)
[2022-10-26 05:46] LABS: CLARITY,URINE CLEAR (CLEAR)
[2022-10-26 05:52] LABS: ALBUMIN 2.9 g/dL (3.2-5.5); ALBUMIN/GLOBULIN RATIO 1.1 (1.0-2.2); BILIRUBIN,TOTAL 0.5 mg/dL (0.2-1.0); CALCIUM 8.5 mg/dL (8.5-10.3); CREATININE 1.1 mg/dL (0.6-1.2); POTASSIUM 3.6 mmol/L (3.5-5.0); TOTAL PROTEIN 5.6 g/dL (6.7-8.2)
[2022-10-26] MEDS ORDERED: diltiaZEM INJ 5 MG/ML VIAL IVP STA (06:24)
[2022-10-26] MEDS ORDERED: PANTOPRAZOLE 40 MG VIAL IVP STA (07:30)
[2022-10-26] MEDS ORDERED: ACETAMINOPHEN 1,000 MG/100 ML 1,000 MG/100 ML BAG IV ONE (07:45)
--- NOTE | 2022-10-26 07:48 | ED Physician Documentation ---
ED Addendum - Addendum Addendum: 10/26/22 07:47 10/26/22 11:04 Patient is 82-year-old male that I received a signout from outgoing physician, please see their documentation for further detail. Patient presents to the emergency department in atrial fibrillation with rapid ventricular response. Subsequently identified to have a likely upper GI bleed. This is in the setting of gastric lymphoma. Evaluated independently at bedside and found to be resting comfortably. A second dose Cardizem was ordered however he spontaneously converted to a sinus rhythm. Independent interpretation of EKG taken at 0923 hrs. is as follows: Sinus rhythm with rate 77 bpm. Normal axis. Normal NH, QRS, QTc intervals. No ST segment elevations or T wave inversions. Patient's hemoglobin did downtrend to 7.6 on a 4-hour recheck. I ordered 1 unit PRBCs for preparation and transfusion here in the emergency department. His care was discussed with , Ebony Chavira, who graciously agrees to accept the patient in transfer for further evaluation and treatment.
[2022-10-26] MEDS ORDERED: PANTOPRAZOLE 80 MG in SODIUM CHLORIDE 0.9% 100ML 100 ML IV STA (09:02)
[2022-10-26] MEDS ORDERED: PANTOPRAZOLE 40 MG VIAL ONE (09:11)
[2022-10-26] MEDS: ONDANSETRON 4 MG/2 ML VIAL IVP STA (09:16)
[2022-10-26] MEDS: diltiaZEM INJ 5 MG/ML VIAL IVP STA ×2 (09:17→09:38)
[2022-10-26 09:40] LABS: HCT - HEMATOCRIT 23.6 % (42.0-52.0); HGB - HEMOGLOBIN 7.6 g/dL (14.0-18.0)
[2022-10-26 14:32] VITALS: O2SAT 98
[2022-10-26 15:14] LABS: HCT - HEMATOCRIT 26.9 % (42.0-52.0); HGB - HEMOGLOBIN 8.8 g/dL (14.0-18.0)
[2022-10-26 19:04] LABS: HCT - HEMATOCRIT 26.4 % (42.0-52.0); HGB - HEMOGLOBIN 8.5 g/dL (14.0-18.0)
[2022-10-26 21:15] VITALS: BP 109/63
== END 2022-10-26 23:15 | disposition short-term general hospital (02) ==
LOC: ED 04:38
DX: K92.2 Gastrointestinal hemorrhage, unspecified (principal); I48.91 Unspecified atrial fibrillation; C85.90 Non-Hodgkin lymphoma, unspecified, unspecified site
CPT/HCPCS: 36415; 36430; 80053; 81003; 82272; 83690; 84484; 85014; 85018; 85025; 86850; 86900; 86901; 86920; 93005; 99284; 99285; J0131; J2765; P9016; 81001; 87086

== ENCOUNTER 2022-10-30 01:52 | Emergency (ER) | payer OTHER | END 2022-10-30 02:31 | disposition left against medical advice (07) | LOC: ED 01:52 | DX: Z53.21 Procedure and treatment not carried out due to patient leaving prior to being seen by health care provider (principal) ==